=== PATIENT | female | born 2005 | race Caucasian/White ===

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

== ENCOUNTER 2024-01-02 08:00 | Outpatient (CLI) | payer MEDICAID ==
[2024-01-02 22:22] LABS: CHLAMYDIA TRACHOMATIS DNA NEGATIVE (NEGATIVE); NEISSERIA GONORRHOEAE DNA NEGATIVE (NEGATIVE); TRICHOMONAS VAGINALIS DNA NEGATIVE (NEGATIVE)
== END 2024-01-02 23:59 | disposition home or self-care (01) ==
LOC: LAB.WC 08:00
PROVIDERS: ATTEND Nurse Practitioner
DX: Z34.01 Encounter for supervision of normal first pregnancy, first trimester (principal)
CPT/HCPCS: 87491; 87591; 87661

== ENCOUNTER 2024-08-22 11:46 | Inpatient (IN) ==
[2024-08-22 12:18] LABS: RUPTURE OF MEMBRANES PLUS POSITIVE (NEGATIVE)
[2024-08-22] MEDS ORDERED: SODIUM CHLORIDE FLUSH 0.9% 10 ML SYRINGE IVP PRN (12:52)
[2024-08-22] MEDS ORDERED: miSOPROStoL 200 MCG TABLET BC PRN (12:52)
[2024-08-22] MEDS ORDERED: miSOPROStoL 200 MCG TABLET PR PRN (12:52)
[2024-08-22] MEDS ORDERED: OXYTOCIN/SODIUM CHLORIDE 500 ML IV PRN (12:52)
[2024-08-22] MEDS ORDERED: TRANEXAMIC ACID IN NACL 1,000 MG/100 ML BAG IV PRN (12:52)
[2024-08-22] MEDS ORDERED: TERBUTALINE 1 MG/ML VIAL SUBQ PRN (12:52)
[2024-08-22] MEDS ORDERED: OXYTOCIN 10 UNIT/ML VIAL IM PRN (12:52)
[2024-08-22] MEDS ORDERED: hydrALAZINE INJ 20 MG/ML VIAL IVP PRN (12:52)
[2024-08-22] MEDS ORDERED: NIFEdipine 10 MG CAPSULE PO PRN (12:52)
[2024-08-22] MEDS ORDERED: LABETALOL 20 MG/4 ML SYRINGE IVP PRN ×3 (12:52)
[2024-08-22] MEDS ORDERED: lidocaine 1% 20 ML MDV ID PRN (12:52)
[2024-08-22] MEDS ORDERED: METHYLERGONOVINE 0.2 MG/ML VIAL IM PRN (12:52)
[2024-08-22] MEDS ORDERED: SODIUM CHLORIDE FLUSH 0.9% 10 ML SYRINGE IVP SCH (13:00)
[2024-08-22] MEDS: miSOPROStoL 100 MCG TABLET BC SCH (13:37)
[2024-08-22 13:41] LABS: BASOPHILS # (AUTO) 0.1 10^3/uL (0.0-0.1); BASOPHILS % (AUTO) 0.6 %; EOSINOPHILS % (AUTO) 0.1 %; HCT - HEMATOCRIT 27.9 % (37.0-47.0); HGB - HEMOGLOBIN 8.9 g/dL (12.0-16.0); LYMPHOCYTES % (AUTO) 23.1 %; MEAN CORPUSCULAR HEMOGLOBIN 24.9 pg (27.0-31.0); MEAN CORPUSCULAR HGB CONC 31.9 g/dL (32.0-36.0); MEAN CORPUSCULAR VOLUME 78.2 fL (81.0-99.0); MEAN PLATELET VOLUME 10.3 fL (7.9-10.8); MONOCYTES # (AUTO) 0.5 10^3/uL (0.0-1.0); MONOCYTES % (AUTO) 5.2 %; NEUTROPHILS # (AUTO) 6.1 10^3/uL (1.5-6.6); NEUTROPHILS % (AUTO) 70.7 %; PLT - PLATELET COUNT 277 10^3/uL (130-450); RED BLOOD COUNT 3.57 10^6/uL (4.20-5.40); RED CELL DISTRIBUTION WIDTH 13.2 % (12.0-15.0); WHITE BLOOD COUNT 8.6 x10^3/uL (4.8-10.8)
--- NOTE | 2024-08-22 13:51 | HISTORY & PHYSICAL EXAMINATION ---
Admit History Smoking Status: Former smoker HPI Current : Current EDU 08/24/24 Gestation 39 Weeks and 5 Days Para 0 Vital Signs Temperature 99.0 F 08/22/24 12:20 NST Procedure NST Procedure: NST Procedure Start Date 08/22/24 Start Time 11:58 Stop Time 12:30 Vibroacoustic Stimulation Used No Patient States Movement Yes Meds/Allgy Home Medications Ambulatory Orders Medication Instructions Recorded Confirmed pediatric multivitamin no.19-folic tab PO 04/06/24 08/17/24 acid 200 mcg chewable tablet (Flintstones Multi-Vitamins Gummies) albuterol sulfate 90 mcg/actuation See Rx Instructions .Route 06/07/24 08/17/24 breath activated powder inhaler .COMPLEX ##1 (ProAir RespiClick) clindamycin phosphate 2 % vaginal 1 appful vaginal QDAY #40 grams 08/11/24 08/17/24 cream Allergies Allergies Allergy/AdvReac Type Severity Reaction Status Date / Time No Known Drug Allergies Allergy Verified 08/17/24 13:47 PFSH Active Problems All Active Problems (Updated 08/09/24 @ 00:00 by ) Left-sided back pain (Acute) Anemia affecting first (Acute) Supervision of normal first (Acute) Anxiety associated with depression (Acute) Medical History Medical History Vomiting Family History Family History (Updated 02/17/24 @ 11:48 by Cynthia Singh MA) Father High blood pressure Alcoholism Social History Social History (Updated 06/09/24 @ 19:53 by Zaira Robles RN) Smoking Status: Former smoker Relationship: Do you feel safe in your home environment?: Yes Suffered physical, verbal, emotional, or financial abuse?: No History of Abuse: No Frequency: Occasional Substance Use: former substance user and cannabis (any form) POLST Patient has POLST: No Physical Abdominal Exam Vital Signs: Temp 99.0 F 08/22/24 12:20 Plan for Labor Plan For Labor I expect patient to be DC'd or transferred within 96 hours.: Yes Plan for Labor: Charleen is a 19yo @ 29.5wks gestation by 7.1wk U/S who presents to [facility] with c/o vaginal leakage of clear fluid which started at 1030 this morning. She reports a small amount of bloody show this morning just prior to SROM but denies persistent vaginal bleeding. She reports +FM. She has felt occasional ellis peña contractions but denies feeling contractions that are consistent or uncomfortable. ROM+ was collected and noted to be positive. RN attempted SVE unable to reach cervical os due to posterior position. Last SVE in the office 5 days ago and was 1/70/-3, posterior and vertex. Upon admission she was noted to have mildly elevated blood pressure. She denies current headache, visual disturbances, RUQ or epigastric pain. She has experienced intermittent headache over the past several weeks. She has been a patient of [facility] for the duration of her which has remained uncomplicated with the exception of a 12 week gap in care due to leaving the state to visit family in [place]. During her absence she did not receive care. She will be admitted to [facility] for active managment. She is supported by her partner and her mom today. Dating criteria: LMP: 11/10/2023 SKY by LMP: 08/16/2024 Initial U/S: 01/16/2024 @ 7+1 days SKY by u/s 09/02/2024 FINAL SKY: 09/02/2024 PROBLEMS: -Limited care (12 wk gap in care due to leaving state) Pre- Weight: 119 BMI: 25.7 Blood type O+ Rh Positive Antibody Negative CBC: PLT 324 HCT 35.3 HGB 12.0 RUB: Immune VZV: NR HBsAg Negative HepC NR RPR/AB-EIA: NR HIV: NR PAP: N/A GC/CT: 01/02/2024 negative HSV: denies in self and partner Genetic testing: NIPT Negative Covid: vaccinated x 2, no booster. Considering and will decide by next visit Flu: declines FAS: Placenta: Posterior Cord: 3VC RAMIRO: 15cm EFW: 500g (90%tile) 50gm OGCT: 123 TDAP: declined Breast Pump: 07/27/2024 3rd trimester PLT 289 10.3/30.2 3rd trimester RPR NR GBS: 07/27/2024 POSITIVE Delivery plan: Desires "wait and see" approach to pain management, would love an unmedicated delivery but not opposed to epidural. MOD: Anticipate Physical exam: Normocephalic, atraumatic Heart RRR w/o M/G/R Lungs CTAB Abdomen gravid, soft, nontender FHR baseline 140, moderate variability, + accels, no decels Contractions palpate mild occasionally with soft resting tone SVE 1/70/-3, posterior. Vertex. Grossly ruptured membranes with clear fluid. ROM+ positive. Bilateral LE's no edema. Mood is good. Assessment: 19yo @ 39.5wks gestation by 7.5wk U/S SROM GBS positive FHR Category I Elevated blood pressure without the diagnosis of HTN Plan: Admit to [facility] for active management of labor secondary to SROM. Initiate misoprostol 50mcg BC q4 hrs for cervical ripening x 2 doses. Repeat SVE after 2 doses of misoprostol or sooner PRN. Consider initiation of pitocin s/p 2 doses of misoprostol. Initiate ampicillin for GBS prophylaxis per protocol. Pre-E labs collected - pending. Continuous monitoring. Jacuzzi PRN. Nitrous oxide PRN. Epidural per maternal request. Anticipate .
--- NOTE | 2024-08-22 13:55 | PROVIDER PROGRESS NOTE ---
Labor Progress Note Labor Progress Note Labor Progress Note/Additional Text: Assessment: Anemia on admission (8.9/27.9) Plan: Type and crossmatch with 2 units on hold. Reviewed active management of the third stage of labor with patient - pt agrees. Consider iron infusion .
[2024-08-22 13:59] LABS: ALBUMIN 3.2 g/dL (3.2-5.5); BILIRUBIN,TOTAL 0.6 mg/dL (0.2-1.0); CALCIUM 8.2 mg/dL (8.5-10.3); CREATININE 0.5 mg/dL (0.6-1.3); POTASSIUM 3.2 mmol/L (3.5-4.5); TOTAL PROTEIN 6.3 g/dL (6.4-8.9)
[2024-08-22] MEDS: AMPICILLIN 2 GM in SODIUM CHLORIDE 0.9% MINIBAG 100 ML IV SCH (14:08)
--- OUTSIDE RECORDS SUMMARY | 2024-08-22 15:11 | EXTERNAL MEDICAL SUMMARY RPT | Continuity of Care Document ---
Author Organization [facility] Address [address] [place] [id number] Phone Problems date description facility 2024-05-28 14:27 Encounter for superv ision of normal first , first trimester [facility] 2024-05-28 14:27 Encounter for superv ision of normal , unspecified, unspecified trimester [facility] 2024-05-28 14:34 Encounter for superv ision of normal first , first trimester [facility] 2024-05-28 14:34 Encounter for superv ision of normal , unspecified, unspecified trimester [facility] 2024-05-29 00:04 Encounter for superv ision of normal first , first trimester [facility] 2024-05-29 00:04 Encounter for superv ision of normal , unspecified, unspecified trimester [facility] 2024-06-02 10:38 Encounter for superv ision of normal first , first trimester [facility] 2024-06-09 21:18 Vomiting of , unspecif ied [facility] 2024-06-14 07:37 Late vomiting of [facility] 2024-06-14 07:37 Vomiting of , unspecif ied [facility] 2024-07-27 14:23 Encounter for screeni ng for Streptococcus B [facility] 2024-07-27 14:24 Encounter for screeni ng for Streptococcus B [facility] 2024-07-27 14:25 Encounter for screeni ng for Streptococcus B [facility] 2024-07-28 00:02 Encounter for screeni ng for Streptococcus B [facility] 2024-07-28 00:04 Encounter for screeni ng for Streptococcus B [facility] 2024-08-02 14:14 Encounter for screeni ng for Streptococcus B [facility] 2024-08-06 12:46 Dorsalgia, unspecified [facility] 2024-08-06 12:53 Dorsalgia, unspecified [facility] 2024-08-06 14:15 Dorsalgia, unspecified [facility] 2024-08-06 15:02 [facility], [facility] Results/Labs test date facility value unit notes Result panel 1 WHITE BLOOD COUNT 2024-05-28 15:33 [facility] 11.1 x10 3/ul (missing) RED CELL DISTRIBUTION WIDTH 2024-05-28 15:33 [facility] % (missing) GLUCOSE,1H PP 50GM DOSE 2024-05-28 15:33 [facility] 123 mg/dl Social History date description facility
[2024-08-22] MEDS: AMPICILLIN 1 GM in SODIUM CHLORIDE 0.9% MINIBAG 100 ML IV SCH (18:00)
[2024-08-22 18:04] LABS: CREATININE,URINE 239.3 mg/dL
[2024-08-22 18:12] LABS: PROTEIN/CREATININE RATIO,URINE 1.9 (<=0.2)
[2024-08-22] MEDS: OXYTOCIN/SODIUM CHLORIDE 500 ML IV SCH (18:41)
[2024-08-22] MEDS: LACTATED RINGERS 1,000 ML IV SCH (18:43)
[2024-08-22] MEDS: fentaNYL 100 MCG/2 ML VIAL IVP PRN (21:46)
[2024-08-22] MEDS ORDERED: LIDOCAINE 2%-EPI 1:100000 20 ML MDV ONE (23:17)
[2024-08-22] MEDS ORDERED: ROPIVACAINE 0.2% 200 MG/100 ML BAG EP ONE (23:18)
--- NOTE | 2024-08-22 23:59 | ANESTHESIA PROCEDURE NOTE ---
Pre-Anesthesia VS, & Labs Diagnosis Surgical Diagnosis:: labor pain Procedure Procedure: labor epidural Vitals Vital Signs: Temp 37.2 C 08/22/24 12:20 NPO NPO: Other Is Patient ?: Yes Lab Results Current Lab Results: Laboratory Tests 08/22/24 13:20: WBC 8.6, RBC 3.57 L, Hgb 8.9 L, Hct 27.9 L, MCV 78.2 L, MCH 24.9 L, MCHC 31.9 L, RDW 13.2, Plt Count 277, MPV 10.3, Neut # (Auto) 6.1, Lymph # (Auto) 2.0, Shelby # (Auto) 0.5, Eos # (Auto) 0.0, Baso # (Auto) 0.1, Absolute Nucleated RBC 0.00, Nucleated RBC % 0.0, Sodium 135, Potassium 3.2 L, Chloride 105, Carbon Dioxide 23, Anion Gap 7.0, BUN 6, Creatinine 0.5 L, Estimated GFR (MDRD) 157, Glucose 94, Calcium 8.2 L, Total Bilirubin 0.6, AST 13, ALT 6 L, A lkaline Phosphatase 237 H, Total Protein 6.3 L, Albumin 3.2, Globulin 3.1, Albumin/Globulin Ratio 1.0, Blood Type O POSITIVE, Antibody Screen NEGATIVE, Crossmatch IS Only See Detail 08/22/24 13:20 08/22/24 13:20 Meds/Allgy Home Medications Ambulatory Orders Medication Instructions Recorded Confirmed pediatric multivitamin no.19-folic tab PO 04/06/24 08/17/24 acid 200 mcg chewable tablet (Flintstones Multi-Vitamins Gummies) albuterol sulfate 90 mcg/actuation See Rx Instructions .Route 06/07/24 08/17/24 breath activated powder inhaler .COMPLEX ##1 (ProAir RespiClick) clindamycin phosphate 2 % vaginal 1 appful vaginal QDAY #40 grams 08/11/24 08/17/24 cream Allergies Allergies Allergy/AdvReac Type Severity Reaction Status Date / Time No Known Drug Allergies Allergy Verified 08/17/24 13:47 PFSH Active Problems All Active Problems (Updated 08/09/24 @ 00:00 by ) Left-sided back pain (Acute) Anemia affecting first (Acute) Supervision of normal first (Acute) Anxiety associated with depression (Acute) Medical History Medical History Vomiting Family History Family History (Updated 02/17/24 @ 11:48 by Cynthia Singh MA) Father High blood pressure Alcoholism Social History Social History (Updated 06/09/24 @ 19:53 by Zaira Robles RN) Smoking Status: Former smoker Relationship: Do you feel safe in your home environment?: Yes Suffered physical, verbal, emotional, or financial abuse?: No History of Abuse: No Frequency: Occasional Substance Use: former substance user and cannabis (any form) POLST Patient has POLST: No POLST Status: Full Code Anesthesia Exam (Expanded) Exam General: Alert, Oriented x3 and Cooperative Dental: WNL Mouth Openin Fingerbreadth Neck Mobility: Normal Mallampati classification: I Thyromental Distance: 4-6 cm Respiratory: Lungs clear Cardiovascular: Regular rate Plan Plan Anesthesia Type: Epidural Consent for Procedure(s) Verified and Reviewed: Yes Code Status: Attempt Resuscitation ASA Classification ASA classification: 2-Mild systemic disease Is this case an emergency?: No
[2024-08-23] MEDS ORDERED: ROPIVACAINE 0.2% 200 MG/100 ML BAG EP PRN
[2024-08-23] MEDS ORDERED: ONDANSETRON 4 MG/2 ML VIAL IVP PRN
[2024-08-23] MEDS ORDERED: METOCLOPRAMIDE 10 MG/2 ML VIAL IVP PRN
[2024-08-23] MEDS ORDERED: diphenhydrAMINE INJ 50 MG/ML VIAL IVP PRN
[2024-08-23] MEDS ORDERED: NALOXONE 0.4 MG/ML VIAL IVP PRN
[2024-08-23] MEDS ORDERED: NALBUPHINE 10 MG/ML AMP IVP PRN
[2024-08-23] MEDS ORDERED: LACTATED RINGERS 500 ML IV ONE
[2024-08-23] MEDS ORDERED: ePHEDrine 50 MG/ML VIAL IVP PRN
[2024-08-23] MEDS: LACTATED RINGERS 1,000 ML IV PRN (00:30)
[2024-08-23] MEDS ORDERED: SIMETHICONE CHEW 80 MG TABLET PO PRN (03:50)
[2024-08-23] MEDS ORDERED: OXYTOCIN/SODIUM CHLORIDE 500 ML IV PRN (03:50)
[2024-08-23] MEDS ORDERED: WITCH HAZEL/GLYCERIN 1 PAD TOP PRN (03:50)
[2024-08-23] MEDS ORDERED: HYDROCORTISONE 1% CREAM 28 GM TUBE TOP PRN (03:50)
--- NOTE | 2024-08-23 03:57 | DELIVERY NOTE ---
Delivery Note Delivery Comments (Free Text/Narrative) Delivery Comments (Free Text/Narrative): Labor: This 19yo @ 39.5 wks gestation by 7wk U/S presented to [facility] with c/o SROM which occurred 08/22/2024 @ 1030. Cervix was 1/70/-3 and vertex with grossly ruptured membranes and clear fluid. She received 1 dose of 50mcg BC misoprostol for cervical ripening followed by pitocin for augmentation of labor with titration per protocol and a maximum infusion rate of 9mU/min. FHR demonstrated Category I pattern throughout labor. Normal labor course. Epidural placed per maternal request. She progressed to c/c/+2 at 0153 with onset of active pushing at 0156. : Normal SVB of viable female on 08/23/2024 @ 0247. Nucal cord x 1 was reduced. The was placed on maternal abdomen, stimulated, dried, and placed skin to skin. 's were 8/9 at 1 and 5 min respectively. Pitocin administered via IV for hemostasis. The umbilical cord was allowed to stop pulsating at which time it was doubly clamped by CNM and cut by FOB. Cord blood was obtained. 3VC. Fundal massage and gentle cord traction applied for active management of the third stage. Placenta delivered spontaneously and intact at 0253. QBL 275mL. Fourth stage: Uterine fundus firm and there is no excessive bleeding. The perineum, vagina, and cervix were inspected and found to have a 2nd degree vaginal laceration which was repaired using a 2-[address]-1 needle, in standard fashion and under sterile conditions. In addition she was found to have a 1st degree left labial laceration which was repaired using a 3-[address]-1 needle, in standard fashion and under sterile conditions. Vaginal examination following repair was performed. Tissues well approximated. initiated. Both mother and baby were left in stable condition.
[2024-08-23] MEDS: IBUPROFEN 800 MG TABLET PO PRN (04:44)
[2024-08-23] MEDS: DOCUSATE SODIUM 100 MG CAPSULE PO SCH (09:16)
[2024-08-23] MEDS: ACETAMINOPHEN 500 MG TABLET PO PRN (09:16)
[2024-08-23] MEDS ORDERED: FERRIC GLUCONATE 62.5 MG/5 ML VIAL IV ONE (11:29)
[2024-08-23] MEDS ORDERED: FERRIC GLUCONATE 62.5 MG/5 ML VIAL IVP ONE (11:42)
[2024-08-23] MEDS: FERRIC GLUCONATE 125 MG in SODIUM CHLORIDE 0.9% 100ML 100 ML IV ONE (12:43)
--- NOTE | 2024-08-23 14:07 | PHARMACY PROGRESS NOTE ---
Best Possible Medication History Admit Date and Time: 08/22/24 1245 Home Medications Medication Instructions Recorded Confirmed Type albuterol sulfate 90 mcg/actuation See Rx Instructions .Route 06/07/24 08/23/24 Rx breath activated powder inhaler .COMPLEX ##1 (ProAir RespiClick) vits no.126-ferrous fum 1 tab PO DAILY 08/23/24 08/23/24 History 28 mg iron-folic acid 800 mcg tablet (Classic ) Processed by: Pharmacy Medications reviewed in ED?: No Medication History completed: Yes Patient Interview: Completed Secondary Source(s): Insurance records [employer] Statement: As the person ultimately responsible for medication therapy, providers are able to order a medication from an existing home medication list in [facility] via the "Reconcile Routine" prior to Confirmation of that medication by behaviour support teacher. Such practice is discouraged except when the physician, in their clinical judgment, deems that a medical need exists for a medication without regard to previous use.
--- NOTE | 2024-08-23 17:41 | PROVIDER PROGRESS NOTE ---
Subjective Prog Note Date Prog Note Date: 08/23/24 Prog Note Time: 17:00 Subjective Subjective: Subjective: Patient reports she is doing well. Comfortable WITHOUT pain narcotic management. All meds need to be liquid Lochia appropriate. Denies heavy bleeding. Ambulating. Pelvic and abdominal pain well-controlled. Tolerating oral intake. Diet: Regular. Voiding without difficulty. Passing flatus. Denies BM. Patient is bonding with baby in room Breast feeding going well. Well supported by nursing. Desires additional assistance with overnight. Denies feeling lightheaded, dizzy or excessively fatigued. Reviewed low H&H on admission. Received IV iron infusion this afternoon. Objective BP's elevated, multiple over 140/90, meets diagnostic criteria for preeclampsia General: Alert, oriented, no apparent distress. 2+ DTR. No significant headaches or changes to vision. Cardiovascular: No edema. Lungs: No increased work of breathing. Abdomen: Uterus firm. Below umbilicus. No guarding or rebound tenderness. Extremities: No pain on palpation. Distal pulses intact. VZV: non-immune Rubella: immune Blood Type: O+ Assessment and Plan day 1. 19yo s/p earlier today. doing well - Routine care and PreEclampsia precautions - Anticipate discharge tomorrow PreEclampsia - No severe features. - will repeat blood work tomorrow - blue PreE risk bracelet recommended. Iron deficiency anemia - IV iron infusion administered - will recommend oral liquid iron for home for discharge. Current Medications Current Medications Current Medications: Current Medications Generic Name Dose Route Start Last Admin Trade Name Freq PRN Reason Stop Dose Admin Acetaminophen 960 mg 08/23/24 14:14 Acetaminophen 160 Mg/5 Ml Susp Udc PO Q8HR PRN Mild Pain or Fever>38C(100.4F) Diphenhydramine HCl 12.5 - 25 mg 08/23/24 00:00 Diphenhydramine Inj 50 Mg/Ml Vial IVP Q6HR PRN ITCHING Docusate Sodium 100 mg 08/23/24 09:00 08/23/24 09:16 Docusate Sodium 100 Mg Capsule PO 100 mg BID STEPHANIE Administration Hydralazine HCl 5 - 10 mg 08/22/24 12:52 Hydralazine Inj 20 Mg/Ml Vial IVP Q20M PRN SBP> or= 160 OR DBP> or= 110 Protocol Hydrocortisone 1 applic 08/23/24 03:50 Hydrocortisone 1% Cream 28 Gm Tube TOP QID PRN PERINEAL REPAIR Oxytocin/Sodium Chloride 500 mls @ 999 mls/hr 08/23/24 03:50 Pitocin/Sodium Chloride IV PRN PRN POST- HEMORR PREVENTION Protocol 999 MILLIUNIT/MIN Ibuprofen 800 mg 08/23/24 14:17 Ibuprofen 200 Mg/10 Ml Udc PO Q8HR PRN Moderate Pain (Level 4-6) Labetalol HCl 20 - 80 mg 08/22/24 12:52 Labetalol 20 Mg/4 Ml Syringe IVP Q10M PRN SBP> or= 160 OR DBP> or= 110 Protocol Labetalol HCl 20 mg 08/22/24 12:52 Labetalol 20 Mg/4 Ml Syringe IVP .ONCE PRN SBP> or= 160 OR DBP> or= 110 Protocol Labetalol HCl 20 - 40 mg 08/22/24 12:52 Labetalol 20 Mg/4 Ml Syringe IVP Q10M PRN SBP> or= 160 OR DBP> or= 110 Protocol Nifedipine 10 - 20 mg 08/22/24 12:52 Nifedipine 10 Mg Capsule PO Q20M PRN SBP> or= 160 OR DBP> or= 110 Protocol Simethicone 80 mg 08/23/24 03:50 Simethicone Chew 80 Mg Tablet PO TID PRN Gas Sodium Chloride 10 ml 08/22/24 12:52 Sodium Chloride Flush 0.9% 10 Ml Syringe IVP PRN PRN NEEDED PER PROVIDER ORDERS Witch Chelsi/Glycerin 1 pad 08/23/24 03:50 Witch Chelsi/Glycerin 1 Pad TOP PRN PRN PERINEAL REPAIR Objective Vital Signs/Intake & Output Vital Signs: Vital Signs x48h Temp Pulse Resp BP Pulse Ox 08/23/24 17:04 37.0 C 72 18 134/81 H 98 08/23/24 12:25 36.5 C 77 16 139/90 H Intake & Output: Intake & Output 08/20/24 08/21/24 08/22/24 08/23/24 23:59 23:59 23:59 23:59 Intake Total 321 / 321 2224 / 2224 Output Total 45 / 45 Balance 321 / 321 2179 / 2179 Weight (kg) 164 lb Lab Results 08/22/24 13:20 08/22/24 13:20 Other Labs: Lab Results x24hrs 08/22/24 Range/Units 17:30 Urine Creatinine 239.3 mg/dL Ur Total Protein Timed 466 mg/dL Protein/Creatinin Ratio 1.9 H (<=0.2)
[2024-08-23] MEDS: ACETAMINOPHEN 160 MG/5 ML SUSP UDC PO PRN (19:21)
[2024-08-24] MEDS: IBUPROFEN 200 MG/10 ML UDC PO PRN (01:04)
--- NOTE | 2024-08-24 08:13 | Discharge Summary ---
Discharge Summary Admit Date: 08/22/24 Discharge Date: 08/24/24 HOSPITAL COURSE Hospital Course: Diagnosis on admission: 19yo @ 39.5wks gestation by 7.5wk U/S SROM GBS positive FHR Category I Elevated blood pressure without the diagnosis of HTN Diagnosis on Discharge 19 yo PPD#1 PreEclampsia without severe features 1st and 2nd degree vaginal lacerations with reapir Anemia Physical exam: Normocephalic, atraumatic Lungs No extra work of breathing Normal uterine involution, FF below umbilicus scant rubra bleeding minimal perineal discomfort. Bilateral LE's no edema Mood is good. Brief history: his 19yo @ 39.5 wks gestation by 7wk U/S presented to [facility] with c/o SROM which occurred 08/22/2024 @ 1030. Cervix was 1/70/-3 and vertex with grossly ruptured membranes and clear fluid. She received 1 dose of 50mcg BC misoprostol for cervical ripening followed by pitocin for augmentation of labor with titration per protocol and a maximum infusion rate of 9mU/min. FHR demonstrated Category I pattern throughout labor. Normal labor course. Epidural placed per maternal request. She progressed to c/c/+2 at 0153 with onset of active pushing at 0156. : Normal SVB of viable female infant on 08/23/2024 @ 0247. Nucal cord x 1 was reduced. The was placed on maternal abdomen, stimulated, dried, and placed skin to skin. 's were 8/9 at 1 and 5 min respectively. Pitocin administered via IV for hemostasis. The umbilical cord was allowed to stop pulsating at which time it was doubly clamped by CNM and cut by FOB. Cord blood was obtained. 3VC. Fundal massage and gentle cord traction applied for active management of the third stage. Placenta delivered spontaneously and intact at 0253. QBL 275mL.Fourth stage: Uterine fundus firm and there is no excessive bleeding. The perineum, vagina, and cervix were inspected and found to have a 2nd degree vaginal laceration which was repaired using a 2-[address]-1 needle, in standard fashion and under sterile conditions. In addition she was found to have a 1st degree left labial laceration which was repaired using a 3-[address]-1 needle She has been doing well in her course. She is ambulating and tolerating a regular diet. She is urinating without difficulty and her lochia is normal. Her pain is well controlled without narcotic management. She will be discharged to home today on day #1 and encouraged IBU, tylenol and stool softeners PRN. Patient intends to warehouse picker liquid versions of these at her local drug store. She intends to follow up with [facility] Friday04/29/2024 @ 1330 with GAVINO Coleman. This is an in-person encounter for BP check and 1 week pp encounter. She has been given precautions to call if she has any new or worsening sx such as fevers, chills, abdominal pain, increasing bleeding, or foul smelling vaginal lochia. preeclamptic precautions reviewed as well. Encouraged to wear blue preE risk bracelet. VZV: non-immune (vaccine ordered) Rubella: immune RH: + ALLERGIES Allergies Allergy/AdvReac Type Severity Reaction Status Date / Time No Known Drug Allergies Allergy Verified 08/17/24 13:47 MEDICATIONS Ambulatory Orders Medication Instructions Recorded Confirmed albuterol sulfate 90 mcg/actuation See Rx Instructions .Route 06/07/24 08/23/24 breath activated powder inhaler .COMPLEX ##1 (ProAir RespiClick) vits no.126-ferrous fum 1 tab PO DAILY 08/23/24 08/23/24 28 mg iron-folic acid 800 mcg tablet (Classic ) PHYSICAL EXAM AT DISCHARGE Vital Signs: Vital Signs x48h Temp Pulse Resp BP Pulse Ox 08/24/24 09:14 36.8 C 77 16 131/80 H 96 LABS 08/22/24 13:20 08/22/24 13:20 Discharge Plan Discharge Patient Disposition: 01 YARI, Self Care Medically Cleared Date:: 08/24/24 Prescriptions: Continued ProAir RespiClick 90 mcg/actuation aerosol powdr breath activated See Rx Instructions .ROUTE .COMPLEX Qty: 1 0RF Dose Instruction: INHALE 1 PUFF BY MOUTH AND INTO THE LUNGS FOUR TIMES A DAY IF NEEDED Rx Instructions: INHALE 1 PUFF BY MOUTH AND INTO THE LUNGS FOUR TIMES A DAY IF NEEDED Classic 28 mg iron- 800 mcg tablet 1 tab PO DAILY Print Language: Salvadorean Patient Instructions: Breastfeed Holds, Vaginal, Benefits, Self Care
[2024-08-24] MEDS: VARICELLA VACCINE LIVE/PF 1,350 UNIT/0.5 ML VIAL SUBQ ONE (11:31)
[2024-08-24 11:54] LABS: BASOPHILS % (AUTO) 0.3 %; EOSINOPHILS # (AUTO) 0.1 10^3/uL (0.0-0.7); EOSINOPHILS % (AUTO) 0.4 %; HCT - HEMATOCRIT 27.9 % (37.0-47.0); HGB - HEMOGLOBIN 8.7 g/dL (12.0-16.0); LYMPHOCYTES # (AUTO) 3.2 10^3/uL (1.5-3.5); LYMPHOCYTES % (AUTO) 24.4 %; MEAN CORPUSCULAR HEMOGLOBIN 25.4 pg (27.0-31.0); MEAN CORPUSCULAR HGB CONC 31.2 g/dL (32.0-36.0); MEAN CORPUSCULAR VOLUME 81.3 fL (81.0-99.0); MEAN PLATELET VOLUME 9.8 fL (7.9-10.8); MONOCYTES # (AUTO) 0.6 10^3/uL (0.0-1.0); MONOCYTES % (AUTO) 4.6 %; NEUTROPHILS # (AUTO) 8.8 10^3/uL (1.5-6.6); NEUTROPHILS % (AUTO) 68.4 %; PLT - PLATELET COUNT 272 10^3/uL (130-450); RED BLOOD COUNT 3.43 10^6/uL (4.20-5.40); RED CELL DISTRIBUTION WIDTH 13.4 % (12.0-15.0); WHITE BLOOD COUNT 12.9 x10^3/uL (4.8-10.8)
[2024-08-24 12:20] LABS: ALBUMIN 3.2 g/dL (3.2-5.5); BILIRUBIN,TOTAL 0.3 mg/dL (0.2-1.0); CALCIUM 8.6 mg/dL (8.5-10.3); CREATININE 0.6 mg/dL (0.6-1.3); TOTAL PROTEIN 6.4 g/dL (6.4-8.9)
[2024-08-24 16:38] VITALS: TEMP 98.6; O2SAT 100
[2024-08-24 17:46] VITALS: BP 142/84
--- NOTE | 2024-08-24 20:23 | Labor Flowsheet ---
Labor Flowsheet Datetime Report Generated by CPN: 08/24/2024 20:23 Datetime: 08/24/2024 17:37 VITAL SIGNS NBP Sys/Maryuri/Mean (mmHg): 142 : 84 : 95 Pulse: 88 Datetime: 08/24/2024 16:34 SpO2 (%): 100 Datetime: 08/23/2024 03:30 Stage of : Datetime: 08/23/2024 03:00 LaborFlag: Labor Datetime: 08/23/2024 02:41 ASSESSMENT A Monitor Mode: Telemetry FHR Baseline Rate : 165 FHR Baseline Changes: Tachycardia Variability: Minimal - Undetectable to <=5 bpm Decelerations: Early; Variable Category: Category II PATIENT CARE Oxygen Method: Room Air STAGE 2 Pushing: Urge to Push Pushing Position: Pushing with Contractions Pushing Progress: Descent with Pushing; with Pushing Datetime: 08/23/2024 02:31 Comments: baseline indeterminate Datetime: 08/23/2024 02:10 Accelerations: None Datetime: 08/23/2024 02:04 UTERINE ACTIVITY Monitor Mode: External Quality: Strong Pattern: Normal: <= 5 Contractions in 10 Minutes Resting Tone (Palpate): Relaxed Contraction Comments: pushing with ctx Datetime: 08/23/2024 01:56 Provider Reviewed Strip: Yes COMMUNICATION Communication: Provider at Bedside Notification Reason: Labor Status; Other Communication Comments: at bedside to begin pushing Datetime: 08/23/2024 01:49 Temperature (C): 37.0 Datetime: 08/23/2024 01:35 VAGINAL EXAM Dilatation (cm): 9.0 Effacement (%): 100 Station: 0 Vaginal Exam Comments: anterior lip Provider Notified (Name): Tami Coleman Datetime: 08/23/2024 01:31 Patient Position/Activity: Right Lateral Datetime: 08/23/2024 01:10 Frequency (min): 1-3 Duration (sec): 80 Actions for Decelerations: IV Bolus Pain Presence: Intermittent Pain Type: Cramping; Contraction Pain Location: Abdomen Pain Relief Measures: Epidural Given Pain Coping: Talking Through Contractions; Breathing Through Contractions; Other Pain Assessment Comments: groaning with ctx Datetime: 08/23/2024 00:56 Exam by: solitario Vaginal Bleeding: None Cervix, Position: Posterior I/O Interventions: Warner Cath Inserted Datetime: 08/23/2024 00:42 Respirations: 20 Monitor Interventions for UA: [place] Adjusted Datetime: 08/23/2024 00:25 PAIN Pain Scale: 6 Pain Goal: 3 Datetime: 08/23/2024 00:24 Comfort Measures: Breathing/Relaxation; Family Support Datetime: 08/23/2024 00:14 MEDICATIONS Pitocin (milliunits): Decreased to @ 8 Datetime: 08/22/2024 23:49 Epidural Procedure Other: Pump Started Anesthesia Comments: bolus dose setting every 45 min Datetime: 08/22/2024 23:40 Epidural Procedure: Test Dose Datetime: 08/22/2024 23:29 ANESTHESIA Anesthesia Plans: Local Datetime: 08/22/2024 23:22 PROCEDURE TIME OUT Procedure Type: verbal Procedure Verify: Correct Patient Identity; Correct Side and Site are Marked; Correct Patient Posit ion; Addressed Need to Administer Antibiotics or Fluids for Irrigation; Safety Precautions Based on P atient History or Medication Use Epidural Positioning: Sitting Datetime: 08/22/2024 22:57 Cervix, Consistency: Soft Datetime: 08/22/2024 20:57 Patient Care Comments: in tub Datetime: 08/22/2024 20:18 MATERNAL ASSESSMENT Breath Sounds, Left: Clear and Equal Breath Sounds, Right: Clear and Equal TEACHING Instructional Method: Verbal Unit Routine: Medications Pain Management: Comfort Measures Teaching Comments: nitrous oxide Datetime: 08/22/2024 20:06 Medication Comments: nitrous started Datetime: 08/22/2024 18:41 Pitocin Checklist: At Least 1 Acceleration of 15 bpm x 15 Seconds in 30 Minutes or Adequate Variabi lity; No More than 1 Late Deceleration Occurred in Past 30 Minutes; No More than 2 Variable Decelerat ions > 60 Seconds in Duration and decreasing >60 bpm in 30 minutes; No More than 5 Uterine Contractio ns in 10 Minutes for any 20 Minute Interval; Uterus Palpates Soft between Contractions Datetime: 08/22/2024 18:00 Antibiotics: Ampicillin IV 1 Gm Datetime: 08/22/2024 13:39 Cervical Ripening Agents: Cytotec @
== END 2024-08-24 20:10 | disposition home or self-care (01) | DRG 807 ==
LOC: WFO 11:46 → FBP 11:47
PROVIDERS: ADMIT Nurse Practitioner Obstetrics & Gynecology; ATTEND Nurse Practitioner Obstetrics & Gynecology